=== PATIENT | female | born 1945 | race Caucasian/White ===

== ENCOUNTER 2016-06-03 06:32 | Day surgery (SDC) | payer MEDICARE, OTHER ==
--- NOTE | ~2016-06-03 | EGD ---
EGD REPORT [facility] [address] [place] [address] NAME: ARCHIE MACIAS : [birth year] STATUS : [facility]#: [id number] AGE: 70 ADM/REG DATE : 06/03/16 MR#: [id number] REPORT SERV DATE: 06/03/16 DICTATED BY: HENRY ALVARES DATE: 06/03/16 REPORT STATUS : Draft TRANSCRIBED BY: [employer] DATE: 06/03/16 [facility] Center Patient Name: Archie Macias Date of : 1945 Attending MD: HENRY ALVARES MD Procedure Date No Time: 06/03/2016 Procedure: Colonoscopy Indications: High risk colon cancer surveillance: Personal history of colonic polyps, FH of Colonic Polyps - 1st degree relative Referring MD: GENE RODRIGUEZ Medicines: as per anesthesia Complications: No immediate complications. Procedure: Pre-Anesthesia Assessment: - ASA Grade Assessment: II - A patient with mild systemic disease. After I obtained informed consent, the scope was passed under direct vision. Throughout the procedure, the patient's blood pressure, pulse, and oxygen saturations were monitored continuously. The PCF [id number] was introduced through the anus and advanced to the cecum, identified by appendiceal orifice and ileocecal valve. The colonoscopy was performed without difficulty. The patient tolerated the procedure. The quality of the bowel preparation was adequate to identify polyps. Findings: The perianal and digital rectal examinations were normal. A sessile polyp was found in the descending colon. The polyp was 5 mm in size. The polyp was removed with a cold biopsy forceps. Resection and retrieval were complete. Many small and large-mouthed diverticula were found in the sigmoid colon. Internal hemorrhoids were found during endoscopy and were mild. Impression: - One 5 mm polyp in the descending colon. Resected and retrieved. - Diverticulosis in the sigmoid colon. - Internal hemorrhoids. Recommendation: - Await pathology results. - Repeat colonoscopy for surveillance based on pathology results. Procedure Code(s): --- Professional --- 67715, Colonoscopy, flexible, proximal to splenic EGD REPORT [facility] [address] [place] [address] NAME: ARCHIE MACIAS : [birth year] STATUS : [facility]#: [id number] AGE: 70 ADM/REG DATE : 06/03/16 MR#: [id number] REPORT SERV DATE: 06/03/16 DICTATED BY: HENRY ALVARES. DATE: 06/03/16 REPORT STATUS : Draft TRANSCRIBED BY: [email or web address] DATE: 06/03/16 flexure; with biopsy, single or multiple Diagnosis Code(s): --- Professional --- D12.4, Benign neoplasm of descending colon K64.8, Other hemorrhoids K57.30, Diverticulosis of large intestine without perforation or abscess without bleeding Z86.010, Personal history of colonic polyps Z83.71, Family history of colonic polyps CPT copyright 2013 [employer]. All rights reserved. The codes documented in this report are preliminary and upon medical biller coder review may be revised to meet current compliance requirements. HENRY ALVARES MD 06/03/2016 9:25 AM This report has been signed electronically. Number of Addenda: 0 Note Initiated On: 06/03/2016 8:47 AM Scope Withdrawal Time 0 hours 11 minutes 6 seconds [address] [facility] [place] [address]
[~2016-06-03 06:32] MED LIST: ADVIL PO; ALLEGRA180 PO; COUMADIN4 MG; FISH-EPA1000 MG PO; PCET PO; PERCOCET1 TA2 PO; TRAZ50 PO; VITAMIN D1000 UNI1 PO
== END 2016-06-03 23:59 | disposition home health service (06) ==
LOC: DMU 06:32
PROVIDERS: Internal Medicine Gastroenterology
PROC: 0DBM8ZX Excision of Descending Colon, Via Natural or Artificial Opening Endoscopic, Diagnostic (ICD-10-PCS; principal; 2016-06-03 08:30)
DX: D12.4 Benign neoplasm of descending colon (principal); K57.30 Diverticulosis of large intestine without perforation or abscess without bleeding; J45.909 Unspecified asthma, uncomplicated; M19.90 Unspecified osteoarthritis, unspecified site; K64.8 Other hemorrhoids; Z86.010 Personal history of colon polyps; Z83.71 Family history of colonic polyps; Z88.5 Allergy status to narcotic agent; Z88.8 Allergy status to other drugs, medicaments and biological substances; Z90.710 Acquired absence of both cervix and uterus; Z98.890 Other specified postprocedural states
CPT/HCPCS: 88305